=== PATIENT | female | born 1990 | race Caucasian/White ===

== ENCOUNTER → 2018-07-19 | Outpatient (CLI) | payer OTHER, SELFPAY | PROVIDERS: Visit Provider Obstetrics & Gynecology | DX: Z01.812 Encounter for preprocedural laboratory examination (principal); O34.219 Maternal care for unspecified type scar from previous cesarean delivery; Z3A.00 Weeks of gestation of pregnancy not specified | CPT/HCPCS: 36415; 85027; 86592; 86850; 86900; 86901 ==

== ENCOUNTER → 2022-09-26 07:53 | Outpatient (CLI) | payer OTHER, SELFPAY ==
--- NOTE | ~2022-09-26 | US_ITS ---
Pelvic ultrasound. Clinical History: First trimester , history of ectopic Technique: Realtime transabdominal and transvaginal scanning of the pelvis was performed. Color flow Doppler and Doppler spectral analysis were performed. Findings: The uterus is anteverted. There is a probable early intrauterine gestational sac, with baldemar mated gestational age of 5 weeks 3 days based on average gestational sac diameter of 7 mm. Questionab le yolk sac present. No pole evident at this time.. The right ovary measures 2.1 x 1.3 x 1.8 cm. No significant right ovarian or adnexal mass is seen. The left ovary measures 2.0 x 1.6 x 1.8 cm. No significant left ovarian or adnexal mass is seen. There is no evidence of free fluid in the cul de sac. Impression: Probable early intrauterine gestational sac with estimated gestational age of 5 weeks 3 days based on average gestational sac diameter. Questionable yolk sac present without visible pole at this t gladis. Reviewed, dictated and finalized at location . Impression: Probable early intrauterine gestational sac with estimated gestational age of 5 weeks 3 days based on average gestational sac diameter. Questionable yolk sac present without visible pole at this time.
== END ==
PROVIDERS: PCP Family Medicine; Visit Provider Obstetrics & Gynecology
DX: N91.2 Amenorrhea, unspecified (principal)
CPT/HCPCS: 76801; 76817

== ENCOUNTER 2022-11-20 14:20 | Outpatient (RCR) | payer OTHER, SELFPAY ==
[2022-11-20 14:55] VITALS: BMI 49.3
[2022-11-20 15:01] VITALS: BMI 49.3
== END 2023-02-11 09:17 | disposition home or self-care (01) ==
LOC: ANHDMC 14:20
PROVIDERS: PCP Family Medicine; Visit Provider Obstetrics & Gynecology
DX: O26.01 Excessive weight gain in pregnancy, first trimester (principal); Z3A.00 Weeks of gestation of pregnancy not specified; Z71.3 Dietary counseling and surveillance
CPT/HCPCS: 97802

== ENCOUNTER 2022-11-23 08:24 | Outpatient (CLI) | payer OTHER, SELFPAY ==
[2022-11-23 09:02] LABS: Glucose Fasting Gestational 115 mg/dL (>/=95); Hemoglobin A1C 5.6 % (<5.7)
[2022-11-23 11:16] LABS: Glucose 1 Hour Gest 200 mg/dL (>/=180)
[2022-11-23 11:38] LABS: Glucose 2 Hour Gest 170 mg/dL (>/= 155)
[2022-11-23 12:46] LABS: Glucose 3 Hour Gest 122 mg/dL (>/=140)
== END 2022-11-23 08:25 | disposition home or self-care (01) ==
PROVIDERS: PCP Family Medicine; Visit Provider Obstetrics & Gynecology
DX: O26.00 Excessive weight gain in pregnancy, unspecified trimester (principal); Z3A.00 Weeks of gestation of pregnancy not specified; R73.09 Other abnormal glucose
CPT/HCPCS: 36415; 82951; 82952; 83036; 86900; 86901

== ENCOUNTER 2023-04-27 10:41 | Observation (INO) | payer OTHER, SELFPAY ==
[2023-04-27] VITALS (7 sets, daily range): BP systolic 110–130; BP diastolic 58–83; PULSE 96–107; BMI 52.4
--- NOTE | ~2023-04-27 | US_ITS ---
EXAMINATION: US OB limited DATE: 04/27/2023 12:56 INDICATION: Vaginal bleeding during third trimester TECHNIQUE: Real-time ultrasound of the pelvis was performed. The interpreting radiologist was not pre sent for the study. COMPARISON: 11/07/2022 FINDINGS: There is a single living fetus in vertex presentation. The placenta is fundal and normal in appearance. cardiac activity and movement are noted. heart rate is 124 beats per m inute (bpm). The amniotic fluid index is subjectively normal. IMPRESSION: 1. Single living fetus in vertex presentation. 2. Normal-appearing placenta. Reviewed, dictated and finalized at location F. ISTICAL TECHNICIAN
[2023-04-27 11:14] LABS: Appearance Urine Clear (Clear); Bacteria Urine None Seen /hpf; Bilirubin Urine Negative (Negative); Blood Urine Negative (Negative); Color Urine Yellow (Yellow); Glucose Urine UA Negative (Negative); Ketones Urine 1+ mg/dL (Negative); Leukocyte Esterase Ur Negative LEU/UL (Negative); Nitrate Urine Negative (Negative); Protein Urine 1+ mg/dL (Negative); RBC Urine 0-2 /hpf (0-2); Specific Grav Ur 1.019 (1.001-1.035); Squamous Epithelial Cell Urine Few /hpf (Few); WBC Urine 0-5 /hpf; pH Urine 5.5 (5.0-9.0)
[2023-04-27 11:18] LABS: Add Urine Microscopic? YES
--- NOTE | 2023-04-27 11:57 | PC.NURSE ---
1157: RN phoned OB Dr. Montes. RN informed her of patient's bright red blood on toliet paper this morning, no blood was noted since. RN informed OB of UA results and reactive NST. Orders to get an ultrasound for a placenta check and perfrom SVE. Orders to call OB back with results.
--- NOTE | 2023-04-27 12:13 | PC.NURSE ---
1216: RN performed SVE, patient was closed, thick, and minus 3.
--- NOTE | 2023-04-27 13:05 | PC.NURSE ---
1305: RN phoned OB partner integration planner Dr. Montes. RN reported SVE and ultrasound report. Orders to discharge patient home on pelvic rest with instructions on when to return to the hospital.
--- NOTE | 2023-04-27 13:09 | OBADM ---
This patient, Yara Islas, admitted to the OB room Labor/Delivery/Recovery 119 for observation. Patient/family oriented to hospital policies and general routines including ID bracelet, bed and alarms, visiting hours, pain management, procedures, bathroom and other care routines, personal items, smoking policy, room service/diet, and visiting hours. Patient/Family are encouraged to report perceived risks to care and to ask questions if they do not understand what they are told or what they should do.
--- NOTE | 2023-05-15 10:45 | PM.OBTRLD ---
OB - Triage/Final Diagnosis Visit Information Comments/Additional reasons for admission: I have assessed the risk for this patient, Yara Islas, and determined that she would benefit from observation care. Evaluation Laboratory results: Laboratory Tests 04/27/23 11:03 Urine Color Yellow Urine Appearance Clear Urine pH 5.5 Ur Specific [place] 1.019 Urine Protein 1+ H Urine Glucose (UA) Negative Urine Ketones 1+ H Ur Blood (Man) Negative Urine Nitrate Negative Urine Bilirubin Negative Urine Urobilinogen 1.0 Leukocyte Esterase Rfl Negative Urine RBC 0-2 Urine WBC 0-5 Ur Squamous Epith Cells Few Urine Bacteria None seen Urine Casts 3-5 Final Diagnosis (1) Spotting affecting , antepartum: Code(s): O26.859 - Spotting complicating , unspecified trimester Status: Acute
== END 2023-04-27 13:19 | disposition home or self-care (01) ==
PROVIDERS: Admitting Provider Obstetrics & Gynecology; PCP Family Medicine; Visit Provider Obstetrics & Gynecology
DX: O26.859 Spotting complicating pregnancy, unspecified trimester (principal); Z3A.00 Weeks of gestation of pregnancy not specified
CPT/HCPCS: 76815; 81001; G0378; G0379

== ENCOUNTER 2023-05-08 15:27 | Outpatient (CLI) | payer OTHER, SELFPAY ==
[2023-05-08 15:55] LABS: Basophils Percent Auto 0.2 % (0.2-1.2); Eosinophils Absolute Auto 0.1 K/mm3 (0-0.3); Eosinophils Percent Auto 0.5 % (0-4.4); Hematocrit 33.9 % (37.0-47.0); Hemoglobin 10.5 g/dL (12.0-15.0); Immature Granulocyte Percent A 0.6 % (0-0.5); Lymphocytes Absolute Auto 2.18 K/mm3 (0.9-3.2); Lymphocytes Percent Auto 12.6 % (18.3-44.2); Mean Corpuscular Hemoglobin 24.8 pg (26-34); Mean Corpuscular Volume 80.1 fl (80-100); Mean Platelet Volume 11.2 fl (7.4-10.4); Monocytes Absolute Auto 1.1 K/mm3 (0.1-0.6); Neutrophils Absolute Auto 13.9 K/mm3 (1.3-6.7); Neutrophils Percent Auto 80.1 % (45.5-73.1); Platelet Count Result 318 k/mm3 (150-375); Red Blood Count 4.23 M/mm3 (4.2-5.4); Red Cell Distribution Width 15.7 % (11.5-14.5); White Blood Count 17.4 K/mm3 (4.5-10.0)
[2023-05-08 15:56] VITALS: BMI 51.6
[2023-05-08 15:59] VITALS: BP 136/84; PULSE 106
[2023-05-08 15:59] LABS: Appearance Urine Clear (Clear); Bacteria Urine Rare /hpf; Bilirubin Urine Negative (Negative); Blood Urine Negative (Negative); Color Urine Yellow (Yellow); Glucose Urine UA 3+ mg/dL (Negative); Ketones Urine Trace mg/dL (Negative); Leukocyte Esterase Ur Negative LEU/UL (Negative); Nitrate Urine Negative (Negative); Non Pathogenic Casts 0-2; Protein Urine 1+ mg/dL (Negative); RBC Urine 0-2 /hpf (0-2); Squamous Epithelial Cell Urine Occasional /hpf (Few); WBC Urine 0-5 /hpf; pH Urine 5.5 (5.0-9.0)
[2023-05-08 16:00] LABS: Specific Grav Ur 1.042 (1.001-1.035)
[2023-05-08 16:01] VITALS: BP 135/87; PULSE 106
[2023-05-08 16:01] LABS: Add Urine Microscopic? YES
[2023-05-08 16:06] LABS: Alanine Aminotransferase 15 U/L (6-35); Albumin Level 3.5 g/dL (3.5-5.1); Alkaline Phosphatase 168 U/L (38-126); Anion Gap 11 mmol/L (8-16); Aspartate Amino Transferase 17 U/L (14-36); Bilirubin,Total 0.4 mg/dL (0.2-1.3); Blood Urea Nitrogen 8 mg/dL (7-17); Carbon Dioxide 16 mmol/L (22-30); Chloride 106 mmol/L (98-107); Estimated CRCL calculation 174 ml/min; Estimated Glomerular Filt Rate > 60; Glucose 192 mg/dL (65-110); Potassium 3.7 mmol/L (3.4-5.0); Sodium 133 mmol/L (137-145); Uric Acid 3.3 mg/dL (2.5-7.5)
[2023-05-08 16:16] VITALS: BP 143/83; PULSE 109
[2023-05-08 16:19] VITALS: BP 135/87; PULSE 106
[2023-05-08 16:30] LABS: Creatinine Urine 183.8 mg/dL; Total Protein Urine Random 13 mg/dL; Ur Ttl Prot Creatinine Ratio 0.07 mg/mg (0-0.20)
[2023-05-08 16:31] VITALS: BP 135/81; PULSE 101
--- NOTE | 2023-05-08 16:38 | PC.NURSE ---
1638: RN informed application coordinator OB Dr. Hughes of patient's vital signs, lab results, and FHT. OB aware that patient had a headache and visual disturbances last night but no complaints at the moment. Orders to discharge patient home with instruction on when to return to the hospital.
== END 2023-05-08 16:43 | disposition home or self-care (01) ==
LOC: ANHOBOP 15:30 → ANHOBPP 15:32
PROVIDERS: PCP Family Medicine; Visit Provider Obstetrics & Gynecology
DX: O13.9 Gestational [pregnancy-induced] hypertension without significant proteinuria, unspecified trimester (principal); Z3A.00 Weeks of gestation of pregnancy not specified
CPT/HCPCS: 36415; 59025; 80053; 81001; 82570; 84156; 84550; 85025; 99199

== ENCOUNTER 2023-05-10 12:00 | Inpatient (IN) | payer OTHER, SELFPAY ==
[2023-05-10] VITALS (55 sets, daily range): BP systolic 119–149; BP diastolic 59–112; PULSE 52–141; RESP 16–18; TEMP 35.7–36.1; O2SAT 82–100; BMI 51.5
[2023-05-10 10:40] LABS: Basophils Percent Auto 0.2 % (0.2-1.2); Eosinophils Absolute Auto 0.1 K/mm3 (0-0.3); Eosinophils Percent Auto 0.4 % (0-4.4); Hematocrit 36.4 % (37.0-47.0); Hemoglobin 11.5 g/dL (12.0-15.0); Immature Granulocyte Absolute 0.12 K/mm3 (0.00-0.031); Immature Granulocyte Percent A 0.7 % (0-0.5); Lymphocytes Absolute Auto 2.22 K/mm3 (0.9-3.2); Lymphocytes Percent Auto 13.4 % (18.3-44.2); Mean Corpuscular HGB Conc 31.6 g/dl (32-36); Mean Corpuscular Hemoglobin 24.8 pg (26-34); Mean Corpuscular Volume 78.6 fl (80-100); Mean Platelet Volume 11.1 fl (7.4-10.4); Monocytes Absolute Auto 1.1 K/mm3 (0.1-0.6); Monocytes Percent Auto 6.4 % (2.6-8.5); Neutrophils Absolute Auto 13.1 K/mm3 (1.3-6.7); Neutrophils Percent Auto 78.9 % (45.5-73.1); Platelet Count Result 301 k/mm3 (150-375); Red Blood Count 4.63 M/mm3 (4.2-5.4); White Blood Count 16.6 K/mm3 (4.5-10.0)
[2023-05-10 10:45] LABS: Appearance Urine Cloudy (Clear); Bacteria Urine 1+ /hpf; Bilirubin Urine Negative (Negative); Blood Urine Negative (Negative); Color Urine Dark Yellow (Yellow); Glucose Urine UA Trace mg/dL (Negative); Ketones Urine Trace mg/dL (Negative); Leukocyte Esterase Ur Negative LEU/UL (Negative); Nitrate Urine Negative (Negative); Protein Urine 2+ mg/dL (Negative); RBC Urine 0-2 /hpf (0-2); Squamous Epithelial Cell Urine Few /hpf (Few)
[2023-05-10 10:49] LABS: Alanine Aminotransferase 13 U/L (6-35); Albumin Level 3.7 g/dL (3.5-5.1); Alkaline Phosphatase 189 U/L (38-126); Anion Gap 9 mmol/L (8-16); Aspartate Amino Transferase 17 U/L (14-36); Bilirubin,Total 0.4 mg/dL (0.2-1.3); Blood Urea Nitrogen 7 mg/dL (7-17); Calcium 9.8 mg/dL (8.4-10.2); Carbon Dioxide 19 mmol/L (22-30); Chloride 107 mmol/L (98-107); Estimated Glomerular Filt Rate > 60; Glucose 125 mg/dL (65-110); Potassium 3.9 mmol/L (3.4-5.0); Sodium 135 mmol/L (137-145); Specific Grav Ur 1.047 (1.001-1.035); Uric Acid 3.3 mg/dL (2.5-7.5)
[2023-05-10 10:50] LABS: Add Urine Microscopic? YES
--- NOTE | 2023-05-10 12:13 | PM.IMHP ---
H&P: HPI History of Present Illness Date/Time: 05/10/23 12:13 Chief Complaint: Intrauterine at term gestational diabetes gestational hypertension Narrative: 33-year-old at 38 weeks 1 day who presents with worsening gestational hypertension. Patient had been following up with [facility]. The patient's is complicated by gestational diabetes. Patient's insulin has been in adequate in controlling sugars lately. Patient's blood pressure has also been increasing lately. Patient's labs do not rule in for preeclampsia at this time. Patient is starting to develop headaches had more labile blood pressures. Patient has a history of prior x2. Will plan for repeat. Patient also desires permanent sterilization at the time of delivery Review of Systems Cardiovascular: Cardiovascular: Denies chest pain, Denies leg edema, Denies palpitations, Denies dyspnea and Denies dyspnea on exertion Respiratory: Respiratory: Denies cough, Denies dyspnea and Denies dyspnea on exertion Gastrointestinal: Gastrointestinal: Denies abdominal pain, Denies constipation, Denies diarrhea, Denies nausea and Denies vomiting Genitourinary: Genitourinary: Denies hematuria, Denies urinary frequency, Denies dysuria, Denies pelvic pain, Denies urinary incontinence and Denies vaginal discharge Neurologic: Reports system reviewed and no additional complaints, except as documented Psychiatric: Psychiatric: Reports no additional psychiatric complaints Endocrine: Endocrine: Denies palpitations PMFSH Past Medical History Medical History (Updated 05/10/23 @ 12:18 by Jesus Hughes MD) Anxiety Gestational diabetes Headache History of hypertension Kidney stones PCOS (polycystic ovarian syndrome) Suppression of menstruation Vertigo Surgical History Surgical History (Updated 05/10/23 @ 12:18 by Jesus Hughes MD) Delivery by section (01/22/12) primary c/s Delivery by section (07/21/18) rpt c/s Family History Family History Mother Hypertension Father Hypertension Social History Social History Smoking status: Never smoker Alcohol intake: never Substance use: former Substance use type: marijuana Last use: 08/30/2022 Lack of Transportation: No Lack of Food: Never True Current Housing: I Have Housing Concerned About Future Housing: No Difficulty Paying Gas/Electric Bills: No Difficulty Paying for Meds: No Currently Unemployed: No Education: High School Diploma/GED Difficulty w/ Childcare or Family Care: No Living arrangements: other Additional living arrangements comments: Occupation/Education: other Additional occupation/education comments: stay at home mom Gender identity (if verbalized by the patient): Female Sexual Orientation (if Verbalized by the Patient): Straight or Heterosexual Spiritual care concerns: No Meds Home Medications and Allergies Home Medications Medication Instructions Recorded Confirmed Type sertraline 100 mg tablet 100 mg PO DAILY 09/24/22 05/10/23 History aspirin 81 mg tablet,delayed 162 mg PO DAILY 01/22/23 05/10/23 History release (Adult Low Dose Aspirin) insulin detemir U-100 100 unit/mL 52 unit subcut QAM AND QHS 01/22/23 05/10/23 History subcutaneous solution (Levemir U-100 Insulin) insulin lispro 100 unit/mL 28 unit subcut QACBREAK 01/22/23 05/10/23 History subcutaneous pen (Humalog KwikPen (U-100) Insulin) insulin lispro 100 unit/mL 22 unit subcut QACDINNER 05/10/23 05/10/23 History subcutaneous pen insulin lispro 100 unit/mL 26 unit subcut QACLUNCH 05/10/23 05/10/23 History subcutaneous pen (Humalog KwikPen (U-100) Insulin) Allergies Allergy/AdvReac Type Severity Reaction Status Date / Time No Known Allergies Allergy Verified 05/07/23 14:26 Vital Signs V
[2023-05-10] MEDS: ACETAMINOPHEN 500 MG TABLET 1000 MG PO (12:39)
[2023-05-10 13:37] LABS: HIV 1/2 Ab P24 Ag Result Negative (Negative)
--- NOTE | 2023-05-10 13:39 | PC.NURSE ---
called Saul Chaves with BS result of 80. no symptomatic. no new orders
[2023-05-10 13:41] LABS: Glucose Point of Care 80 mg/dl (65-105)
[2023-05-10] MEDS: DEXTROSE 5%/LACTATED RINGERS 1,000 ML 125 ML IV CONT (14:29)
[2023-05-10] MEDS: LACTATED RINGERS 1,000 ML 125 ML IV CONT ×2 (14:30→15:48)
[2023-05-10 15:28] LABS: Rapid Plasma Reagin Non-Reactive (NonReactive)
--- NOTE | 2023-05-10 15:42 | WPDANESEPPF ---
Anes - Initial Pre Proc Eval Procedure: Operation Date: 05/10/23 16:00 Proposed Procedures p Section - Jesus Hughes MD Date/Time: 05/10/23 15:42 Surgeon: Miguel Angel Dominguez MD Pre Op Diagnosis: [facility] Patient Data Age: 33 Gender: F Height: 1.57 m Weight: 127.7 kg Last Vital Signs Pulse 88 05/10/23 15:31 BP 138/59 L 05/10/23 15:31 O2 Del Method Room Air 05/10/23 12:49 Allergies Allergy/AdvReac Type Severity Reaction Status Date / Time No Known Allergies Allergy Verified 05/07/23 14:26 Home Medications Medication Instructions Recorded Confirmed Type sertraline 100 mg tablet 100 mg PO DAILY 09/24/22 05/10/23 History aspirin 81 mg tablet,delayed 162 mg PO DAILY 01/22/23 05/10/23 History release (Adult Low Dose Aspirin) insulin detemir U-100 100 unit/mL 52 unit subcut QAM AND QHS 01/22/23 05/10/23 History subcutaneous solution (Levemir U-100 Insulin) insulin lispro 100 unit/mL 28 unit subcut QACBREAK 01/22/23 05/10/23 History subcutaneous pen (Humalog KwikPen (U-100) Insulin) insulin lispro 100 unit/mL 22 unit subcut QACDINNER 05/10/23 05/10/23 History subcutaneous pen insulin lispro 100 unit/mL 26 unit subcut QACLUNCH 05/10/23 05/10/23 History subcutaneous pen (Humalog KwikPen (U-100) Insulin) Laboratory Tests 05/10/23 05/10/23 05/10/23 10:09 12:22 13:31 WBC 16.6 H K/mm3 (4.5-10.0) RBC 4.63 M/mm3 (4.2-5.4) Hgb 11.5 L g/dL (12.0-15.0) Hct 36.4 L % (37.0-47.0) MCV 78.6 L fl (80-100) MCH 24.8 L pg (26-34) MCHC 31.6 L g/dl (32-36) RDW 16.0 H % (11.5-14.5) Plt Count 301 k/mm3 (150-375) MPV 11.1 H fl (7.4-10.4) Immature Gran % (Auto) 0.7 H % (0-0.5) Neut % (Auto) 78.9 H % (45.5-73.1) Lymph % (Auto) 13.4 L % (18.3-44.2) [place] % (Auto) 6.4 % (2.6-8.5) Eos % (Auto) 0.4 % (0-4.4) Baso % (Auto) 0.2 % (0.2-1.2) Lymph # (Auto) 2.22 K/mm3 (0.9-3.2) [place] # (Auto) 1.1 H K/mm3 (0.1-0.6) Eos # (Auto) 0.1 K/mm3 (0-0.3) Baso # (Auto) 0.0 K/mm3 (0.0-0.1) Abs Immat Gran (auto) 0.12 H K/mm3 (0.00-0.031) Absolute Neuts (auto) 13.1 H K/mm3 (1.3-6.7) Absolute Nucleated RBC 0.0 K/mm3 (0.0-0.012) Nucleated RBC % 0.0 % (0.0-0.2) Sodium 135 L mmol/L (137-145) Potassium 3.9 mmol/L (3.4-5.0) Chloride 107 mmol/L (98-107) Carbon Dioxide 19 L mmol/L (22-30) Anion Gap 9 mmol/L (8-16) BUN 7 mg/dL (7-17) Creatinine 0.50 L mg/dL (0.7-1.0) Estim Creat Clear Calc Not Reportable Estimated GFR > 60 (59 - ) Glucose 125 H mg/dL (65-110) POC Capillary Glucose 80 mg/dl (65-105) Uric Acid 3.3 mg/dL (2.5-7.5) Calcium 9.8 mg/dL (8.4-10.2) Total Bilirubin 0.4 mg/dL (0.2-1.3) AST 17 U/L (14-36) ALT 13 U/L (6-35) Alkaline Phosphatase 189 H U/L (38-126) Total Protein 7.0 g/dL (6.3-8.2) Albumin 3.7 g/dL (3.5-5.1) Urine Color Dark yellow (Yellow) Urine Appearance Cloudy H (Clear) Urine pH 5.0 (5.0-9.0) Ur Specific [place] 1.047 H (1.001-1.035) Urine Protein 2+ H mg/dL (Negative) Urine Glucose (UA) Trace H mg/dL (Negative) Urine Ketones Trace H mg/dL (Negative) Ur Blood (Man) Negative (Negative) Urine Nitrate Negative (Negative) Urine Bilirubin Negative (Negative) Urine Urobilinogen 1.0 mg/dL (<2.0) Leukocyte Esterase Rfl Negative YOANA/UL (Negative) Urine RBC 0-2 /hpf (0-2) Urine WBC 6-10 H /hpf Ur Squamous Epith Cell
[2023-05-10] MEDS: ONDANSETRON INJ 4 MG/2 ML VIAL IV PUSH (15:44)
[2023-05-10] MEDS: FAMOTIDINE 20 MG/2 ML VIAL IV PUSH (15:44)
[2023-05-10] MEDS: ceFAZolin 3 GM/D5W 100 ML 100 ML IVPB (16:11)
--- NOTE | 2023-05-10 17:16 | W.PM.OBCSD ---
OB - Delivery Note Procedure Delivery date: 05/10/23 Pre-op diagnosis: Gestational Diabetes and Gestational Hypertension Post-op Diagnosis: Same Induction method: None Procedure Performed: Repeat Secondary branch: low cervical, transverse and Tubal Ligation Surgeon: Jesus Hughes MD Anesthesia type: Spinal Description of Procedure/Findings: The patient was taken to the operating room where epidural anesthesia was found to be adequate. She was then prepped and draped in the usual sterile fashion in the dorsal supine position with a leftward tilt. A Pfannenstiel skin incision was then made with the scalpel and carried through to the underlying layer of fascia. The fascia was then incised in the midline and the incision extended laterally with the Martell scissors. The superior aspect of the fascia was then grasped with the Rosendo clamps, elevated, and the underlying rectus muscles dissected off bluntly and sharply. Attention was then turned to the inferior aspect of this incision which, in a similar fashion, was grasped, tented up with the Rosendo clamps, and the rectus muscles dissected off both bluntly and sharply. The rectus muscles were then in the midline, and the peritoneum identified, tented up, and entered sharply with the Metzenbaum scissors. The peritoneal incision was then extended superiorly and inferiorly with good visualization of the bladder. The bladder blade was then inserted and the vesicouterine peritoneum identified, grasped with the pick-ups and entered sharply with the Metzenbaum scissors. This incision was then extended laterally and the bladder flap created digitally. An Dontae ring retractor was placed in the abdomen for better visualization. The uterus was examined for rotation. The lower uterine segment incised in a low, transverse fashion with the scalpel. The uterine incision was then extended laterally bluntly. The amniotic sac was ruptured with copious amounts of clear fluid. The head was delivered to the hysterotomy. The had was difficult to remove from the abdomen due to excess tissue of the mons. Forceps were applied to help guide the head out of the pelvis with fundal pressure. The fetus was delivered atraumatically. The fetus was noted to have good color and cried with minimal stimulation. The cord was clamped and cut. The was handed off to the waiting pediatricians (staff). Cord gasses were sent. The placenta was then removed manually, the uterus exteriorized, and cleared of all clots and debris. The uterine incision was repaired with 0 monocryl in a running fashion. A second imbricating layer was performed with 0 moncryl. Both fallopian tubes were identified and followed out to the fimbriae bilaterally. The left fallopian tube was grasped with Babcocks and elevated to identify an avascular space in the mesosalpinx. The fallopian tube was transected along its inferior mesosalpinx with the ligasure device. The fallopian tube was transected near the uterine fundus. The same procedure was repeated for the right fallopian tube. The uterus was returned to the abdomen. The uterus was then reinspected to ensure hemostasis as were all subfascial tissues. The peritoneum was re-approximated with 3-0 vicryl in a running fashion. The fascia was reapproximated with 0 vicryl in a running fashion. The subcutaneous layer was copiously irrigated to clear any clots or debris. The subcutaneous tissue was reapproximated using 3-0 Vicryl with interrupted sutures. The skin was closed with marc. The incision was covered with a DIMITRIOS vacuum dressing. The patient tolerated the procedure well. Sponge, lap and needle counts were correct times three. The patient was taken to the recovery room in stable condition. Specimen: No Estimated Blood Loss: 257 Drains: No Packing: No Pathology: None sent Complications: No immediate complications Condition: Stable Disposition: Floor [place] Baby Date of
[2023-05-10] MEDS: diphenhydrAMINE HCl INJ 50 MG/ML VIAL 25 MG IV PUSH (17:45)
[2023-05-10] MEDS: OXYTOCIN 30 UNITS/NS 500 ML 30 UNITS/500 ML BAG 125 UNITS IV CONT (19:30)
--- NOTE | 2023-05-10 19:47 | PC.NURSE ---
report to Montserrat ARVIZU in PP. reported on maternal status with QBl and recovery information all questions answered at this time. Patient transfered to at 1930
[2023-05-10] MEDS: LORATADINE 10 MG TABLET PO (20:13)
[2023-05-10] MEDS: ACETAMINOPHEN 325 MG TABLET 650 MG PO (23:10)
[2023-05-10] MEDS: KETOROLAC 15 MG/ML VIAL (*BKC) IV PUSH (23:10)
[2023-05-11 00:18] VITALS: BP 127/72; PULSE 75; RESP 18; TEMP 35.6; O2SAT 100
[2023-05-11] MEDS: DEXTROSE 5%/0.45% SOD CHL 1,000 ML 125 ML IV CONT (00:22)
[2023-05-11 03:56] VITALS: BP 139/79; PULSE 81; RESP 18; TEMP 35.6; O2SAT 100
[2023-05-11] MEDS: ACETAMINOPHEN 325 MG TABLET 650 MG PO ×4 (05:01→23:33)
[2023-05-11] MEDS: KETOROLAC 15 MG/ML VIAL (*BKC) IV PUSH (05:01)
[2023-05-11 05:16] LABS: Basophils Absolute Auto 0.1 K/mm3 (0.0-0.1); Basophils Percent Auto 0.3 % (0.2-1.2); Eosinophils Absolute Auto 0.1 K/mm3 (0-0.3); Eosinophils Percent Auto 0.5 % (0-4.4); Hematocrit 31.3 % (37.0-47.0); Hemoglobin 9.4 g/dL (12.0-15.0); Immature Granulocyte Absolute 0.11 K/mm3 (0.00-0.031); Immature Granulocyte Percent A 0.6 % (0-0.5); Lymphocytes Absolute Auto 2.68 K/mm3 (0.9-3.2); Lymphocytes Percent Auto 15.7 % (18.3-44.2); Mean Corpuscular Hemoglobin 24.7 pg (26-34); Mean Corpuscular Volume 82.2 fl (80-100); Mean Platelet Volume 11.6 fl (7.4-10.4); Monocytes Absolute Auto 1.1 K/mm3 (0.1-0.6); Monocytes Percent Auto 6.5 % (2.6-8.5); Neutrophils Absolute Auto 13.1 K/mm3 (1.3-6.7); Neutrophils Percent Auto 76.4 % (45.5-73.1); Platelet Count Result 247 k/mm3 (150-375); Red Blood Count 3.81 M/mm3 (4.2-5.4); Red Cell Distribution Width 15.9 % (11.5-14.5); White Blood Count 17.1 K/mm3 (4.5-10.0)
--- NOTE | 2023-05-11 07:30 | PM.OBPNVD ---
OB - PN: Subj Subjective Date/time seen: 05/11/23 07:30 Patient comments: no complaints, pain well controlled, tolerating diet and flatus present OB - PN: Obj Data Labs 05/11/23 03:45 05/10/23 10:09 Labs: Laboratory Results - last 24 hr 05/10/23 05/10/23 05/10/23 10:09 12:22 13:31 WBC 16.6 H RBC 4.63 Hgb 11.5 L Hct 36.4 L MCV 78.6 L MCH 24.8 L MCHC 31.6 L RDW 16.0 H Plt Count 301 MPV 11.1 H Immature Gran % (Auto) 0.7 H Neut % (Auto) 78.9 H Lymph % (Auto) 13.4 L [place] % (Auto) 6.4 Eos % (Auto) 0.4 Baso % (Auto) 0.2 Lymph # (Auto) 2.22 [place] # (Auto) 1.1 H Eos # (Auto) 0.1 Baso # (Auto) 0.0 Abs Immat Gran (auto) 0.12 H Absolute Neuts (auto) 13.1 H Absolute Nucleated RBC 0.0 Nucleated RBC % 0.0 Sodium 135 L Potassium 3.9 Chloride 107 Carbon Dioxide 19 L Anion Gap 9 BUN 7 Creatinine 0.50 L Estim Creat Clear Calc Not Reportable Estimated GFR > 60 Glucose 125 H POC Capillary Glucose 80 Uric Acid 3.3 Calcium 9.8 Total Bilirubin 0.4 AST 17 ALT 13 Alkaline Phosphatase 189 H Total Protein 7.0 Albumin 3.7 Urine Color Dark yellow Urine Appearance Cloudy H Urine pH 5.0 Ur Specific [place] 1.047 H Urine Protein 2+ H Urine Glucose (UA) Trace H Urine Ketones Trace H Ur Blood (Man) Negative Urine Nitrate Negative Urine Bilirubin Negative Urine Urobilinogen 1.0 Leukocyte Esterase Rfl Negative Urine RBC 0-2 Urine WBC 6-10 H Ur Squamous Epith Cells Few Urine Bacteria 1+ H Urine Casts 3-5 RPR Non-reactive HIV 1&2 Ab/P24 Ag 4thGn Negative Rubella IgG Antibody Cancelled Blood Type O Positive 05/11/23 03:45 WBC 17.1 H RBC 3.81 L Hgb 9.4 L Hct 31.3 L MCV 82.2 MCH 24.7 L MCHC 30.0 L RDW 15.9 H Plt Count 247 MPV 11.6 H Immature Gran % (Auto) 0.6 H Neut % (Auto) 76.4 H Lymph % (Auto) 15.7 L [place] % (Auto) 6.5 Eos % (Auto) 0.5 Baso % (Auto) 0.3 Lymph # (Auto) 2.68 [place] # (Auto) 1.1 H Eos # (Auto) 0.1 Baso # (Auto) 0.1 Abs Immat Gran (auto) 0.11 H Absolute Neuts (auto) 13.1 H Absolute Nucleated RBC 0.0 Nucleated RBC % 0.0 Sodium Potassium Chloride Carbon Dioxide Anion Gap BUN Creatinine Estim Creat Clear Calc Estimated GFR Glucose POC Capillary Glucose Uric Acid Calcium Total Bilirubin AST ALT Alkaline Phosphatase Total Protein Albumin Urine Color Urine Appearance Urine pH Ur Specific [place] Urine Protein Urine Glucose (UA) Urine Ketones Ur Blood (Man) Urine Nitrate Urine Bilirubin Urine Urobilinogen Leukocyte Esterase Rfl Urine RBC Urine WBC Ur Squamous Epith Cells Urine Bacteria Urine Casts RPR HIV 1&2 Ab/P24 Ag 4thGn Rubella IgG Antibody Blood Type OB - PN A/P Plan day: 1 Plan: routine care Comments: patient doing well H/H 9., continue iron supplementation afebrile, VSS incision covered with dry dressing cedillo removed, voiding spontaneously continue routine post op care Time Spent With Patient Time: Total time spent is greater than 50% in coordination of care (as documented) at patient's floor/unit and/or counseling patient: Time with patient: less than 15 minutes Review of Systems Constitutional: Constitutional: Reports no additional constitutional complaints Cardiovascular: Cardiovascular: Reports no additional cardiovascular complaints Respiratory: Respiratory: Reports no additional respiratory complaints Gastrointestinal: Gastrointestinal: Reports no additional gastrointestinal complaints Genitourinary: Genitourinary: Reports no additional female genitourinary complaints Exam Const: General: comfortable and no acute distress Resp: Effort & Inspection: normal respiratory effort Auscultation: clear to auscultation bilaterally
[2023-05-11] MEDS: DOCUSATE SODIUM 100 MG CAPSULE PO ×2 (08:45→17:07)
[2023-05-11] MEDS: MULTIVIT/MIN/PREN/FOL AC/IRON TABLET 1 TAB PO (08:45)
[2023-05-11] MEDS: POLYSACCHARIDE IRON COMPLEX 150 MG CAPSULE PO ×2 (08:46→17:07)
[2023-05-11] MEDS: SIMETHICONE 80 MG TAB.CHEW PO ×3 (08:46→17:07)
[2023-05-11] MEDS: SERTRALINE HCL 50 MG TABLET 100 MG PO (08:46)
[2023-05-11 09:00] VITALS: BP 136/87; PULSE 74; RESP 18; TEMP 36.4; O2SAT 100
[2023-05-11] MEDS: IBUPROFEN 600 MG TABLET PO ×3 (11:30→23:33)
[2023-05-11] MEDS: diphenhydrAMINE HCl CAP 25 MG CAPSULE PO (13:00)
--- NOTE | 2023-05-11 15:45 | WPDANLDPN2 ---
Anes-Prog Note L&D Date/Time: 05/11/23 15:45 Comfortable throughout: section Neuraxial method: spinal Epidural/Spinal procedure site: clean & non-tender Neuro status: Neuro function grossly intact. Cardiovascular status: normal Respiratory status: normal Airway patency: baseline Mental status: baseline Post-Op hydration status: normal Vital Signs: Last Vital Signs Temp 36.4 C L 05/11/23 09:00 Pulse 74 05/11/23 09:00 Resp 18 05/11/23 09:00 BP 136/87 05/11/23 09:00 Pulse Ox 100 05/11/23 09:00 O2 Del Method Room Air 05/11/23 09:00 Pain score (VAS): 2/10 I/O: Intake & Output 05/10/23 05/11/23 05/11/23 23:59 07:59 15:59 Intake Total 100 Output Total 310 300 Balance -210 -300 Post-procedural complaints: pruritis Patient feedback: Patient satisfied with anesthetic care.
--- NOTE | 2023-05-11 15:46 | WPDANLDNPN2 ---
Anes-Prog Note L&D-Neuraxial Date/Time: 05/11/23 15:46 Neuraxial medications: intrathecal PF morphine Opiod-related complaints: pruritis moderate, treatment effective Patient feedback: Patient satisfied with post-operative pain management.
[2023-05-11] MEDS: LIDOCAINE 5% PATCH 1 PATCH TRANSDERM (17:08)
[2023-05-11 17:23] VITALS: BP 125/71; PULSE 75; RESP 18; TEMP 36.4; O2SAT 100
[2023-05-11 18:55] VITALS: BP 137/81; PULSE 81; RESP 18; TEMP 36.4; O2SAT 100
[2023-05-11 23:55] VITALS: BP 139/85; PULSE 87; RESP 16; TEMP 36.4; O2SAT 100
[2023-05-12] MEDS: LIDOCAINE 5% PATCH 1 PATCH TRANSDERM (05:30)
[2023-05-12] MEDS: ACETAMINOPHEN 325 MG TABLET 650 MG PO ×2 (05:35→11:15)
[2023-05-12] MEDS: IBUPROFEN 600 MG TABLET PO ×2 (05:35→11:15)
[2023-05-12 05:40] VITALS: BP 133/83; PULSE 88; RESP 16; TEMP 36.5; O2SAT 100
[2023-05-12 08:30] VITALS: BP 105/77; PULSE 88; RESP 18; TEMP 37; O2SAT 99
[2023-05-12] MEDS: DOCUSATE SODIUM 100 MG CAPSULE PO (08:34)
[2023-05-12] MEDS: POLYSACCHARIDE IRON COMPLEX 150 MG CAPSULE PO (08:34)
[2023-05-12] MEDS: MULTIVIT/MIN/PREN/FOL AC/IRON TABLET 1 TAB PO (08:34)
[2023-05-12] MEDS: SERTRALINE HCL 50 MG TABLET 100 MG PO (08:34)
[2023-05-12] MEDS: SIMETHICONE 80 MG TAB.CHEW PO ×2 (08:34→11:15)
--- NOTE | 2023-05-12 09:40 | PM.OBDSVD ---
DS: Admitting Diagnosis Discharge Date 05/12/23 Admitting Diagnosis intrauterine at term gestational hypertension gestational diabetes DS: Discharge Diagnosis Discharge Diagnosis (1) History of section complicating : Code(s): O34.219 - Maternal care for unspecified type scar from previous delivery Status: Acute (2) Gestational hypertension: Code(s): O13.9 - Gestational [-induced] hypertension without significant proteinuria, unspecified trimester Status: Acute (3) Gestational diabetes: Code(s): O24.419 - Gestational diabetes mellitus in , unspecified control Status: Acute (4) Obesity affecting in third trimester: Code(s): O99.213 - Obesity complicating , third trimester Status: Acute (5) Delivery by section: Onset Date: 01/22/12 Status: Acute OB - DS: Summary OB Procedures : None OB Procedures Intrapartum: OB Procedures: : None Peripartum Data Delivery Method: Section Procedures: Procedures Operation Date: 05/10/23 16:00 Actual Procedure Side Surgeon p Section Jesus Hughes MD complications: none Status at Discharge Functional status at discharge: independent ambulation Overall status at discharge: patient is progressing back to baseline Time Spent with Patient Time attestation: Total time spent providing and/or coordinating discharge services: Time spent: Less than 30 minutes Exam Const: General: comfortable and no acute distress Resp: Effort & Inspection: normal respiratory effort Auscultation: clear to auscultation bilaterally Cardio: Rate: regular rate GI: Inspection: non-distended GI Palp: Yes Soft to palpation, No Firmness to palpation present (GI), Yes Tenderness to palpation present (GI) (mild tenderness over incision ) and No Guarding due to palpation present (GI) Auscultation: normal bowel sounds Other: incision covered with clean/dry DIMITRIOS dressing Psych: Appearance: grossly normal Mental Status: mental status grossly normal DS: Data Data Completed and Pending Pending studies at discharge: Pending at discharge 05/10/23 17:50 Surgical [PTH] Routine Discharge Plan Discharge Discharging Clinician: Jesus Hughes Patient Disposition: Home, Self-Care Activity: as tolerated and pelvic rest Diet: regular Patient Instructions: Antibiotic Form, (DC) Stand Alone Forms: General Discharge Information Follow-up/Referrals: Miguel Angel Dominguez MD [Physician] - Discharge Medications: New oxycodone-acetaminophen 5-325 mg tablet 1 tablet PO Q6H PRN (Reason: pain) Qty: 28 0RF ibuprofen 600 mg tablet 600 mg PO Q6H PRN (Reason: pain) Qty: 30 0RF Continued sertraline 100 mg tablet 100 mg PO DAILY Discontinued aspirin [Adult Low Dose Aspirin] 81 mg tablet,delayed release (DR/EC) 162 mg PO DAILY Levemir U-100 Insulin 100 unit/mL solution 52 unit subcut QAM AND QHS insulin lispro [Humalog KwikPen Insulin] 100 unit/mL insulin pen 28 unit subcut QACBREAK insulin lispro [Humalog KwikPen Insulin] 100 unit/mL insulin pen 26 unit SUBCUT QACLUNCH insulin lispro 100 unit/mL insulin pen 22 unit SUBCUT QACDINNER Date of admission: 05/10/23 12:00 Primary Care Provider: Minoo,Mumtaz Solares Admitting Provider: Miguel Angel Dominguez Attending physician on admission: Miguel Angel Dominguez Condition: Stable
[2023-05-12] MEDS: TETANUS,DIPHTHERIA,AC PERTUSSIS ADULT (0.5 ML) BOOSTRIX IM (12:10)
[2023-05-13 10:10] VITALS: BP 149/89; PULSE 94; RESP 18; TEMP 37.2; O2SAT 100
== END 2023-05-12 12:10 | disposition home or self-care (01) | DRG 785 ==
LOC: ANHOBOP 12:19 → ANHOB2 05-12 09:42 → ANHLDR 05-13 12:46 → ANHOB2 05-13 12:46 → ANHOBPP 05-13 12:46
PROVIDERS: Obstetrics & Gynecology; Admitting Provider Student in an Organized Health Care Education/Training Program; PCP Family Medicine; Visit Provider Student in an Organized Health Care Education/Training Program
PROC: 10D00Z1 Extraction of Products of Conception, Low, Open Approach (ICD-10-PCS; CPT 59514; principal; 2023-05-10 16:00)
DX: O13.4 Gestational [pregnancy-induced] hypertension without significant proteinuria, complicating childbirth (principal); Z37.0 Single live birth; Z3A.38 38 weeks gestation of pregnancy; O34.211 Maternal care for low transverse scar from previous cesarean delivery; O24.429 Gestational diabetes mellitus in childbirth, unspecified control; O77.0 Labor and delivery complicated by meconium in amniotic fluid; O99.214 Obesity complicating childbirth; E66.9 Obesity, unspecified; Z30.2 Encounter for sterilization
CPT/HCPCS: 36415; 80053; 81001; 82948; 84550; 85025; 86592; 86703; 86900; 86901; 87086; 88302; 90715; A9270; G0432; J0690; J1200; J1885; J2274; J2405; J2590; J7120; J7121

== ENCOUNTER 2023-05-19 13:55 | Inpatient (IN) | payer OTHER, SELFPAY ==
[2023-05-19] VITALS (26 sets, daily range): BP systolic 102–156; BP diastolic 57–85; PULSE 72–99; RESP 16–18; TEMP 36.1–36.6; O2SAT 86–100; BMI 48.4
[2023-05-19] MEDS: LACTATED RINGERS 1,000 ML 75 ML IV CONT (14:32)
[2023-05-19] MEDS: MAGNESIUM SULF 20GM/WATER500ML 500 ML 50 MG IV CONT (14:33)
--- NOTE | 2023-05-19 14:40 | LDADM ---
This patient, Yara Islas, was admitted to [facility] on 05/19/23 at 13:55. Plans for labor, pain management and were discussed with patient. Patient/family oriented to hospital policies and general routines including ID bracelet, bed and alarms, visiting hours, pain management, procedures, bathroom and other care routines, personal items, smoking policy, room service/diet and guest tray routines, infant security routines, and visiting hours. Patient/Family are encouraged to report perceived risks to care and to ask questions if they do not understand what they are told or what they should do. See OBIX for further documentation.
--- NOTE | 2023-05-19 14:43 | PC.NURSE ---
1409: RN phoned electronics scale tester OB Dr. Johnson to inform her of patient's arrival from [facility]. RN report patient's initial VS on arrival and the BP EMS gave RN while in route of 127/. RN informed OB that patient is complaining of a headache and rating it a 3 out of 10 and had gotten a 4 g loading dose of Magnesium Sulfate and is now receiving 2 g an hour of Magnesium Sulfate. RN informed OB that the patient did not receive any Labetalol yet. OB stated she was under the impression that the ER at [place] was going to give the patient IV Labetalol. The only medication the ER gave the patient was Tylenol at 1300 for a headache. CMP and CBC were completed by [place]'s ER and results were reported to OB. RN reported to OB that patient arrived on unit with a regular cuff on her arm, [facility] assessed patient's arm and determined a larger cuff was needed. OB ordered for the 2 g of Magnesium Sulfate to be continued as well as a UA with a PC ratio. Orders to keep patient on a regular diet. OB stated patient can have Tylenol, Ibuprofen, and [place] as needed. Orders to repeat CBC, CMP, and UA with a PC ratio tomorrow morning.
[2023-05-19 14:48] LABS: Appearance Urine Clear (Clear); Bilirubin Urine Negative (Negative); Blood Urine Negative (Negative); Color Urine Yellow (Yellow); Glucose Urine UA Negative (Negative); Ketones Urine Negative (Negative); Leukocyte Esterase Ur Negative LEU/UL (Negative); Nitrate Urine Negative (Negative); Protein Urine Negative (Negative); Specific Grav Ur 1.012 (1.001-1.035); Urobilinogen Urine 0.2 mg/dL (<2.0)
[2023-05-19 14:54] LABS: Add Urine Microscopic? NO
[2023-05-19 14:55] LABS: Total Protein Urine Random 15 mg/dL; Ur Ttl Prot Creatinine Ratio 0.28 mg/mg (0-0.20)
--- NOTE | 2023-05-19 15:07 | PC.NURSE ---
1505: RN phoned RN to report UA and BPs. OB ordered Magnesium Sulfate to be continued and stopped at 1 am (12 hours from when it was started). OB ordered repeat CBC and CBC at 5 am tomorrow. Orders to decrease Magnesium Sulfate to 1 g an hour if patient's blood pressure is less than 90/50's. OB ordered Zofran, Colace, and Zofran as needed.
--- NOTE | 2023-05-19 15:11 | PC.NURSE ---
RN examined patient's section incision site. Site is clean, dry, approximated and open to air. Appears to be healing well.
[2023-05-19] MEDS: IBUPROFEN 600 MG TABLET PO ×2 (16:04→22:00)
[2023-05-19] MEDS: HYDROcodone/acetaminophen (*CRX) 5-325 MG TABLET 1 TAB PO (22:34)
[2023-05-20] VITALS (12 sets, daily range): BP systolic 120–161; BP diastolic 64–86; PULSE 64–83; RESP 18; TEMP 36.7; O2SAT 96–99
[2023-05-20 05:21] LABS: Hemoglobin 10.2 g/dL (12.0-15.0); Mean Corpuscular Hemoglobin 24.3 pg (26-34); Mean Corpuscular Volume 81.1 fl (80-100); Mean Platelet Volume 11.1 fl (7.4-10.4); Platelet Count Result 365 k/mm3 (150-375); Red Blood Count 4.19 M/mm3 (4.2-5.4); Red Cell Distribution Width 15.9 % (11.5-14.5); White Blood Count 8.3 K/mm3 (4.5-10.0)
[2023-05-20 05:41] LABS: Alanine Aminotransferase 14 U/L (6-35); Albumin Level 3.6 g/dL (3.5-5.1); Alkaline Phosphatase 122 U/L (38-126); Anion Gap 6 mmol/L (8-16); Aspartate Amino Transferase 19 U/L (14-36); Bilirubin,Total 0.3 mg/dL (0.2-1.3); Blood Urea Nitrogen 14 mg/dL (7-17); Calcium 7.9 mg/dL (8.4-10.2); Carbon Dioxide 24 mmol/L (22-30); Chloride 106 mmol/L (98-107); Estimated CRCL calculation 142 ml/min; Estimated Glomerular Filt Rate > 60; Glucose 106 mg/dL (65-110); Potassium 3.9 mmol/L (3.4-5.0); Sodium 136 mmol/L (137-145)
[2023-05-20] MEDS: HYDROcodone/acetaminophen (*CRX) 5-325 MG TABLET 1 TAB PO (06:25)
--- NOTE | 2023-05-20 06:40 | PM.IMHP ---
H&P: HPI History of Present Illness Date/Time: 05/20/23 07:16 Chief Complaint: Transfer for pre-eclampsia Narrative: Yara is a 33yo [id number] s/p rLTCS + salpingectomy on 05/10/23. Her was complicated by h/o x2, gestational diabetes, as well as gestational hypertension. She was seen 05/16/23 for staple removal and BP was noted to be in the normal range. She presented to [facility] mid day on 05/18/23 due to severe headache and elevated blood pressures. On arrival to their ER, her sBPs where in the 180's. The ER PA called the call line and asked for management and transfer as they do not admit women . She was started on magnesium and labetalol was ordered but apparently not given. On arrival to L&D, she did endorse headache, but reports that she feels like it may be due to lack of eating. She did have a small cuff on, which was too small, when medium cuff was placed, her BPs were found to be in the normal range on magnesium. Blood work form prior hospital showed normal values, and P/C ratio of 0.27. Overnight, she denies any issues, but her BPs did increase to moderate range. Still has a mild ATKINS, but needs some caffeine. No CP, SOB, vision changes. Minimal lochia. No issues with her incision. Tolerating regular diet. Normal bowel/bladder function. Review of Systems Constitutional: Constitutional: Denies chills, Denies fever(s) and Denies headache(s) Eyes: Eyes: Denies change in vision ENT: Denies dizziness and Denies headache(s) Cardiovascular: Cardiovascular: Denies chest pain and Denies dyspnea Respiratory: Respiratory: Denies cough and Denies dyspnea Gastrointestinal: Gastrointestinal: Denies abdominal pain and Denies change in stool character Genitourinary: Genitourinary: Denies abnormal vaginal bleeding, Denies pelvic pain, Denies vaginal discharge, Denies vaginal odor and Denies vaginal pruritus Neurologic: Denies dizziness and Denies headache(s) Psychiatric: Psychiatric: Denies anxiety and Denies depression [facility] Past Medical History Medical History (Updated 05/19/23 @ 20:56 by Sis Johnson MD) Anxiety Gestational diabetes Headache History of hypertension Kidney stones PCOS (polycystic ovarian syndrome) Suppression of menstruation Vertigo Surgical History Surgical History (Updated 05/12/23 @ 09:41 by Jesus Hughes MD) Delivery by section (01/22/12) primary c/s Delivery by section (07/21/18) rpt c/s Family History Family History Mother Hypertension Father Hypertension Social History Social History Smoking status: Never smoker Second hand tobacco smoke exposure: No Alcohol intake: never Substance use: never Substance use type: marijuana Last use: 08/30/2022 Do You Feel Safe in your Home?: Yes Lack of Transportation: No Lack of Food: Never True Current Housing: I Have Housing Concerned About Future Housing: No Difficulty Paying Gas/Electric Bills: No Difficulty Paying for Meds: No Currently Unemployed: No Education: Trade/Vocational Certificate Difficulty w/ Childcare or Family Care: No Living arrangements: other Additional living arrangements comments: Occupation/Education: other Additional occupation/education comments: stay at home mom Gender identity (if verbalized by the patient): Female Sexual Orientation (if Verbalized by the Patient): Straight or Heterosexual Spiritual care concerns: No Meds Home Medications and Allergies Home Medications Medication Instructions Recorded Confirmed Type sertraline 100 mg tablet 100 mg PO DAILY 09/24/22 05/19/23 History ibuprofen 600 mg tablet 600 mg PO Q6H PRN pain #30 tabs 05/12/23 05/19/23 Rx Allergies Allergy/AdvReac Type Severity Reaction Status Date / Time No Known Allergies Allergy Verified
[2023-05-20] MEDS: LABETALOL HCL 100 MG TABLET 200 MG PO (07:19)
--- NOTE | 2023-05-20 10:53 | PC.NURSE ---
1030: Dr. Johnson on unit reviewing patient's blood pressures. Orders to get another blood pressure now and then one more at 1130 today. Orders to discharge patient home on Labetalol if both blood pressures are not in the severe range.
--- NOTE | 2023-05-21 08:26 | PM.OBDSVD ---
DS: Admitting Diagnosis Discharge Date 05/20/23 Admitting Diagnosis PP pre-eclampsia h/o and salpingectomy DS: Discharge Diagnosis Discharge Diagnosis (1) Pre-eclampsia, : Code(s): O14.95 - Unspecified pre-eclampsia, complicating the puerperium Status: Acute OB - DS: Summary OB Procedures : [facility] Mgmt OB Procedures Intrapartum: OB Procedures: : Other (magnesium and labetalol PO) Status at Discharge Functional status at discharge: independent ambulation Overall status at discharge: patient is back to baseline Time Spent with Patient Time attestation: Total time spent providing and/or coordinating discharge services: Exam Const: General: cooperative, comfortable, no acute distress and obese Orientation/consciousness: patient oriented x3 Resp: Effort & Inspection: normal respiratory effort Auscultation: clear to auscultation bilaterally Cardio: Rate: regular rate GI: Inspection: non-distended and incision (healed) GI Palp: No abdominal tenderness and Yes Soft to palpation Auscultation: normal bowel sounds Skin: General skin exam: normal color Neuro: General: patient oriented x3 Extrem: General: normal to inspection Psych: Appearance: grossly normal Affect: normal affect Attitude: cooperative Discharge Plan Discharge Attending physician on discharge: Sis Johnson Discharging Clinician: Sis Johnson Anticipated Discharge Date/Time: 05/20/23 12:00 Patient Disposition: Acute Care Hospital Activity: may shower and pelvic rest Diet: regular Discharge Instructions: Education: Mom and Baby Guide Given to: Follow-Up: Call your delivering provider's office for an appointment to be seen in: Mom and baby should come to the [facility] for the follow-up appointment. Appointment Date/Time: at What to expect at your follow-up visit: Call [phone] if you are unable to keep your appointment time. BREAST CARE: * Wear a snug supportive bra. * For engorgement discomfort: Breast Feeding: * Apply warm moist washcloths * Express milk as needed to relieve engorgement * Wear loose clothing Bottle Feeding: * May apply ice packs * For sore nipples: * Identify correct latch-on * Apply warm moist washcloths before and after nursing * Air dry nipples after nursing * May apply Lansinoh cream to nipples ABDOMINAL INCISION: (if applicable) * Allow incision to air dry * Do NOT use lotions for powders on your incision * When showering, allow soap and water to run over the incision, but do not wash incision EPISIOTOMY/PERINEAL CARE: * Until bleeding stops, use your al bottle after urinating * Change your pad frequently throughout the day * You may take sitz baths several times a day (fill your bathtub with warm water and soak for 20 minutes.) Do NOT bathe in the water * No tub baths until seen by your physician - You may shower ACTIVITY: * Rest as much as possible. * Do not exercise or lift anything heavier than your baby (such as laundry or other children.) * Avoid stairs or driving as much as possible. * Do not put anything into the vagina. No douching, tampons, or sexual activity until seen by physician. NOTIFY PHYSICIAN IF YOU HAVE ANY QUESTIONS OR IF ANY OF THE FOLLOWING SYMPTOMS OCCUR: * If your episiotomy or incision becomes red, swollen, or more painful than what you have experienced in the hospital. * If your vaginal bleeding becomes foul smelling. * If your vaginal bleeding becomes more heavy than a period or if your bleeding changes from pink to bright red. However, you may pass an occasional walnut-sized clot once or twice for the first week . * If you experience a sharp, shooting pain in you calves. * If you discover a hard, reddened area on your breast or if you experience flu-like sympt
== END 2023-05-20 11:44 | disposition short-term general hospital (02) | DRG 776 ==
PROVIDERS: Admitting Provider Obstetrics & Gynecology; PCP Family Medicine; Visit Provider Obstetrics & Gynecology
DX: O14.95 Unspecified pre-eclampsia, complicating the puerperium (principal)
CPT/HCPCS: 36415; 80053; 81003; 82570; 84156; 85027; A9270; J3475; J7120